=== PATIENT | female | born 1995 | race Caucasian/White ===

== ENCOUNTER 2020-11-26 17:55 | Emergency (ER) | payer OTHER ==
[~2020-11-26 17:55] MED LIST: BENTYL10 MG PO; PROTONIX 40MG T40 MG PO; SUCRALFATE1 GM/10 ML PO
[2020-11-26 18:41] LABS: BILIRUBIN NEGATIVE (NEGATIVE); BLOOD NEGATIVE Ery/uL (NEGATIVE); CLARITY CLEAR (CLEAR); COLOR YELLOW (YELLOW); GLUCOSE (U) NORMAL (NORMAL); LEUKOCYTES NEGATIVE Leu/uL (NEGATIVE); NITRITE NEGATIVE (NEGATIVE); PROTEIN NEGATIVE (NEGATIVE); SPECIFIC GRAVITY 1.025 (1.001-1.030); UROBILINOGEN 0.2 mg/dL (0.2-1.0)
[2020-11-26 18:41] LABS: BASOPHIL 0.5 % (0-2); EOSINOPHIL 0.3 % (0-5); HCT 41.1 % (37.0-47.0); HGB 14.1 g/dl (12.5-16.0); MCH 29.6 pg (25.0-31.0); MCHC 34.3 g/dL (32.0-36.0); MCV 86.3 fL (78.0-100.0); MONOCYTE 4.7 % (0-12); NEUTROPHIL 72.2 % (41-80); NRBC 0; PLT 339 K/uL (150-400); RBC 4.76 M/uL (4.20-5.40); RDW 12.3 % (11.5-14.0); WBC 10.9 K/uL (4.0-10.5)
[2020-11-26 19:08] LABS: ALBUMIN 3.9 g/dL (3.4-5.0); BUN/CREAT RATIO (CALC) 10.6 RATIO; CREATININE 0.66 mg/dL (0.51-0.95); GLOBULIN (CALCULATION) 4.2 g/dL; POTASSIUM 3.9 mmol/L (3.5-5.1); TOTAL PROTEIN 8.1 g/dL (6.4-8.2)
[2020-11-26] MEDS ORDERED: PRILOSEC20 MG PO (20:08)
== END 2020-11-26 20:45 | disposition home or self-care (01) ==
LOC: FER 17:55
PROVIDERS: Emergency Medicine
DX: R10.13 Epigastric pain (principal); R11.2 Nausea with vomiting, unspecified; I10 Essential (primary) hypertension; Z79.899 Other long term (current) drug therapy
CPT/HCPCS: 36415; 80053; 81003; 82150; 83690; 85025; 99284